=== PATIENT | male | born 1950 | race Two or more races ===

== ENCOUNTER 2024-11-13 12:17 | Emergency (ER) | payer OTHER ==
[~2024-11-13] VITALS: Ht 177.8 cm; Wt 82.9 kg
[2024-11-13 12:28] VITALS: TEMP 98.6
[2024-11-13 12:38] VITALS: BP 145/83; RESP 16; O2SAT 95
--- NOTE | 2024-11-13 12:48 | ECG ---
[facility] Test Date: 2024-11-13 Test Time: 12:21:29 Pat Name: GERRI NAVARRETE Department: ED Room: Gender: M Director Of Investigations: KIKA : 1950 Requested By: NEERU ALMEIDA Order Number: [id number] Reading MD: Ricco Leblanc Measurements Intervals [place] Rate: 67 P: 71 [place]: 184 QRS: 108 QRSD: 111 T: 56 QT: 415 QTc: 438 Interpretive Statements Sinus rhythm Probable right ventricular hypertrophy Minimal ST elevation, anterior leads Electronically Signed On 11-13-2024 20:59:24 PDT by Ricco Leblanc Please click the below link to view image of tracing.
[2024-11-13 13:04] LABS: Basophils # (auto) 0.1 10 ^3/uL (0-0.2); Basophils % (auto) 1.1 % (0.0-2.0); Eosinophils # (auto) 0.2 10 ^3/uL (0-0.8); Eosinophils % (auto) 1.8 % (0.0-7.0); Hematocrit 44.7 % (41.0-53.0); Hemoglobin 15.4 g/dL (13.5-17.5); Lymphocytes # (auto) 2.8 10 ^3/uL (0.4-5.4); Mean Corpuscular Hemoglobin 31.5 pg (28.0-32.0); Mean Corpuscular Hgb Conc. 34.4 g/dL (32.0-36.0); Mean Corpuscular Volume 91.6 fL (80.0-100.0); Monocytes # (auto) 0.7 10 ^3/uL (0-1.3); Neutrophils # (auto) 8.2 10 ^3/uL (1.6-8.6); Neutrophils % (auto) 68.1 % (37.0-80.0); Nucleated Red Blood Cells % 0.1 %; Platelet Count (auto) 294 10^3/uL (140-450); Red Blood Cells 4.88 10^6/uL (4.5-5.90); Red Cell Distribution Width 15.3 % (11.8-14.3)
[2024-11-13 13:14] LABS: Chloride 101 mmol/L (98-107)
[2024-11-13 13:15] LABS: Anion Gap 7 (5-15); Carbon Dioxide 26 mmol/L (20-31)
[2024-11-13 13:16] LABS: Calcium 9.7 mg/dL (8.7-10.4)
[2024-11-13 13:18] LABS: Sodium 134 mmol/L (136-145)
[2024-11-13 13:20] LABS: Glucose 87 mg/dL (74-106)
[2024-11-13 13:21] LABS: BUN/Creatinine Ratio 14.1 (10.0-20.0); Blood Urea Nitrogen 12 mg/dL (9-23)
[2024-11-13 14:12] VITALS: PULSE 67
--- NOTE | 2024-11-13 14:12 | ED.PDOC ---
History of Present Illness HPI Comments 74 y/o M, with a history of HTN and tobacco use, presents with c/o nonradiating chest pain, today. Patient reports on unprovoked and sudden onset of pain, this morning, with no prior history of in the past. He endorses on no recent stressors, sick contact, strenuous activities, or any additional relevant recent history at this time. Patient denies having any shortness of breath, palpitations, dizziness, nausea, vomiting, or other associated symptoms or modifiers at this time. Chief Complaint: Chest Pain Time Seen by MD: 12:30 Reviewed Notes: Nurses Notes, Medications, Allergies Allergies: Coded Allergies: NO KNOWN ALLERGIES (Unverified , 11/13/24) Information Source: Patient Mode of Arrival: Ambulatory Severity: Moderate Timing: Hours Duration: Since onset Prehospital treatment: None Past Medical History PAST MEDICAL HISTORY: HTN Surgical History: Denies all surgeries Family History Family History: Unknown Social History Smoker: Cigarettes Alcohol: Sober (8x years ) Drugs: Denies Drug Use Lives In: Home All Other Systems: Reviewed and Negative (Comprehensive systems review obtained and negative except for what is stated in the HPI.) Physical Exam General Appearance: Moderate Distress HEENT: Normal ENT Inspection, Pharynx Normal, TMs Normal Neck: Full Range of Motion, Non-Tender, Normal, Normal Inspection Respiratory: Chest Non-Tender, Lungs Clear, No Accessory Muscle Use, No Respiratory Distress, Normal Breath Sounds Cardiovascular: No Edema, No JVD, No Murmur, No Gallop, Normal Peripheral Pulses, Regular Rate/Rhythm Breast Exam: Deferred Gastrointestinal: No Organomegaly, Non Tender, No Pulsatile Mass, Normal Bowel Sounds, Soft Genitalia: Deferred Pelvic: Deferred Rectal: Deferred Extremities: No calf tenderness, Normal capillary refill, Normal inspection, Normal range of motion, Non-tender, No pedal edema Musculoskeletal : Apperance: Normal Neurologic: Alert, nail kegger II-XII nml as Tested, No Motor Deficits, Normal Affect, Normal Mood, No Sensory Deficits Cerebellar Function: Normal Reflexes: Normal Skin: Dry, Normal Color, Warm Peripheral Pulses: 3+ Radial (R), 3+ Radial (L) Lymphatic: No Adenopathy Was a procedure done? Was a procedure done?: No EKG EKG : Pulse Rate (adult): 67 [place]: Normal Cardiac Rhythm: NSR Block: None Hypertrophy: None ST: Normal Differential Dx Considerations may include: VA, PE, ACS, PNA, URI, viral syndrome, gastritis, costochondritis, pericarditis, among others X-Ray, Labs, Meds, VS Vital Signs Date Time Temp Pulse Resp B/P (MAP) Pulse Ox O2 Delivery O2 Flow Rate FiO2 11/13/24 14:12 67 11/13/24 12:38 68 16 145/83 (103) 95 11/13/24 12:28 98.6 70 18 132/102 (112) 95 98.6 11/13/24 12:21 67 Lab Test 11/13/24 13:27 11/13/24 12:35 Range/Units Troponin I High Sensitivity < 3 L 3 L </=54 ng/L White Blood Count 12.0 H 4.4-10.8 10^3/uL Red Blood Count 4.88 4.5-5.90 10^6/uL Hemoglobin 15.4 13.5-17.5 g/dL Hematocrit 44.7 41.0-53.0 % Mean Corpuscular Volume 91.6 80.0-100.0 fL Mean Corpuscular Hemoglobin 31.5 28.0-32.0 pg Mean Corpuscular Hemoglobin Concent 34.4 32.0-36.0 g/dL Red Cell Distribution Width 15.3 H 11.8-14.3 % Platelet Count 294 140-450 10^3/uL Mean Platelet Volume 8.1 6.9-10.8 fL Neutrophils (%) (Auto) 68.1 37.0-80.0 % Lymphocytes (%) (Auto) 23.0 10.0-50.0 % Monocytes (%) (Auto) 6.0 0.0-12.0 % Eosinophils (%) (Auto) 1.8 0.0-7.0 % Basophils (%) (Auto) 1.1 0.0-2.0 % Neutrophils # (Auto) 8.2 1.6-8.6 10 ^3/uL Lymphocytes # (Auto) 2.8 0.4-5.4 10 ^3/uL Monocytes # (Auto) 0.7 0-1.3 10 ^3/uL Eosinophils # (Auto) 0.2 0-0.8 10 ^3/uL Basophils # (Auto) 0.1 0-0.2 10 ^3/uL Nucleated Red Blood Cells 0.1 % Sodium Level 134 L 136-145 mmol/L Potassium Level 4.0 3.5-5.1 mmol/L Chloride Level 101 98-107 mmol/L Carbon Dioxide Level 26 20-31 mmol/L Anion Gap 7 5-15 Blood Urea Nitrogen 12 9-23 mg/dL Creatinine 0.85 0.700-1.30 mg/dL Glomerular Filtration Rate Calc 92 >90 mL/min BUN/Creatinine Ratio 14.1 10.0-20.0 Serum Glucose 87 74-106 mg/dL Calcium Level 9.7 8.7-10.4 mg/dL Patient alert. Complaining of chest pain. Vitals stable. Answering questions. WBC slightly elevated. Cardiac marker within normal limits. EKG reviewed does not show any acute changes. Continues to have chest pain. Has risk factors. Was given aspirin. Was given nitro. Reviewed his history. Explained to the patient. Continue cardiac monitoring. Cardiology consultation. Time of 1ST Reevaluation: 13:00 Reevaluation 1ST: Unchanged Patient Education/Counseling: Diagnosis, Treatment Family Education/Counseling: No Family Present Additional Information Previous medical encounters reviewed: n/a The following tests were ordered, and results were reviewed by me: EKG, BMP, CBC, troponin Additional Information was gathered from interviewing the following independent historians: n/a I reviewed and agreed with the following test results read by other providers: n/a I discussed treatment and results with medical personnel and: Patient Departure 1 Departure Time of Disposition: 15:16 Impression: Primary Impression: Chest pain of unknown etiology Disposition: ADMITTED INPATIENT Admit to: Med Surg Condition: Guarded Critical Care Note Critical Care Time?: No Stability Stability form required: No Heart Score Heart Score: Heart Score Response (Comments) Value History Slightly Suspicious 0 EKG Normal 0 Age >65 2 Risk Factors 1 or 2 risk factors 1 Troponin Normal limit 0 Total 3 I personally scribed for NEERU ALMEIDA MD ([email or web address]) on 11/13/24 at 14:12. Electronically submitted by Navjot Ca ([email or web address]). NEERU ALMEIDA MD Nov 13, 2024 14:12
== END 2024-11-13 21:03 | disposition left against medical advice (07) ==
LOC: ER 12:27
DX: R07.89 Other chest pain (principal); I10 Essential (primary) hypertension; F17.210 Nicotine dependence, cigarettes, uncomplicated
CPT/HCPCS: 36415; 80048; 84484; 85025; 93005

== ENCOUNTER 2025-03-20 13:05 | Inpatient (IN) | payer OTHER ==
[~2025-03-20] VITALS: Ht 170.2 cm; Wt 83.3 kg
--- NOTE | 2025-03-20 13:38 | ED.PDOC ---
HPI Comments HPI: This is a 74 year old male presenting to the ED with chief complaint of chest pain. Patient reports that he has been experiencing left sided arm cramping with associated left sided chest pain since yesterday. Patient relays that he went to regarding his concern today, however, he was advised to come to the ED due to the symptoms he was describing. Patient denies any SOB, dizziness, headache, cough, or N/V. Initial Vitals BP: 155/80 HR: 65 RR: 16 O2: 95% Temp: 97.2F Past Medical History: HTN Past Surgical History: Hernia Repair Social History: Denies ETOH and drug use. Cigarette smoker. Medications: Reviewed Allergies: NKDA HPI: Poor Historian. REVIEW OF SYSTEMS: CONSTITUTIONAL: Denies acute: fever, diaphoresis, chills, HEAD: Denies acute: headache, photophobia Eyes: Denies acute: Double vision, vision loss, eye pain, eye discharge. EARS: Denies acute: tinnitus, hearing loss, ear discharge, ear pain, THROAT: Denies acute: sore throat, swelling, difficulty swallowing , pain with swallowing, change in voice. NECK: Denies acute: neck pain, neck swelling, stiff neck. HEART: Denies acute : palpitations, LUNGS: Denies acute: SOB, wheezing, cough, hemoptysis ABDOMEN: Denies acute: abdominal pain, Nausea, Vomiting, diarrhea, melena , hematemesis, hematochezia SKIN: Denies acute: rash, redness, lesions, itchiness. EXTREMITIES: Denies acute: calf pain, numbness, tingling, weakness, Denies acute: Low back pain. Neuro: Denies acute: focal neurological deficit, motor or sensory focal neurological deficit, tremors, seizure like activity, confusion, dizziness, change in mental status, loss of bowel or bladder function, cauda equina like symptoms. : Denies acute: dysuria, hematuria, flank pain, increase in urinary frequency. PSYCH: Denies acute: hallucination, suicidal ideation, homicidal ideation. PHYSICAL EXAM: General: -----mild---acute distress, awake and alert. Head: normocephalic, atraumatic. Neck: supple, trachea is midline, no swelling. Throat: Normal phonation. Eyes:, no erythema, no purulent discharge, no proptosis, no icterus. Heart: regular rate, regular rhythm, no significant murmur appreciated. Lungs: no apparent respiratory distress, Able to speak in full sentences. No wheezing, no rhonchi, no crackles. No stridors Clear to auscultation bilaterally. Abdomen: non tender to palpation, non distended, soft, no guarding, no rebound, + bowel sounds. Neuro: Awake, Alert, oriented to name, self, situation, follows commands GCS=15. Speech is normal. Skin: no petechia, no purpura, no cyanosis, non-pale, not jaundice. Lower extremities: --no - Pitting edema no deformity, no focal swelling, no calf TTP. Makes eye contact. moves all four extremities. Face: no apparent facial droop. Ambulating in the ED independently. ED COURSE: DISCLAIMER: This medical document was created using an electronic medical record system with voice recognition software and computerized dictation system. Although this document has been carefully reviewed, there might still be some phonetic and typographical errors. Occasional wrong-word or "sound-alike" substitutions may have occurred due to the inherent limitations of voice recognition software. These areas are purely typographical due to imperfections of the software programs and do not reflect any compromise in the patient's medical care. Please read the chart carefully and recognize, using context, where these substitutions have occurred. Chief Complaint: Chest Pain Time Seen by MD: 13:35 Reviewed Notes: Medications, Allergies Allergies: Coded Allergies: NO KNOWN ALLERGIES (Unverified , 11/13/24) Information Source: Patient Mode of Arrival: Ambulatory Was a procedure done? Was a procedure done?: No X-Ray, Labs, Meds, VS Vital Signs Date Time Temp Pulse Resp B/P (MAP) Pulse Ox O2 Delivery O2 Flow Rate FiO2 03/20/25 14:34 134/73 03/20/25 14:29 98.2 59 16 138/88 (105) 91 98.2 03/20/25 14:04 71 03/20/25 13:15 68 03/20/25 13:08 97.2 65 16 155/80 95 97.2 Lab Test 03/20/25 14:35 03/20/25 13:34 Range/Units Troponin I High Sensitivity < 3 L < 3 L </=54 ng/L White Blood Count 11.7 H 4.4-10.8 10^3/uL Red Blood Count 4.97 4.5-5.90 10^6/uL Hemoglobin 15.8 13.5-17.5 g/dL Hematocrit 45.2 41.0-53.0 % Mean Corpuscular Volume 91.0 80.0-100.0 fL Mean Corpuscular Hemoglobin 31.9 28.0-32.0 pg Mean Corpuscular Hemoglobin Concent 35.0 32.0-36.0 g/dL Red Cell Distribution Width 14.8 H 11.8-14.3 % Platelet Count 308 140-450 10^3/uL Mean Platelet Volume 8.0 6.9-10.8 fL Neutrophils (%) (Auto) 68.3 37.0-80.0 % Lymphocytes (%) (Auto) 22.1 10.0-50.0 % Monocytes (%) (Auto) 6.4 0.0-12.0 % Eosinophils (%) (Auto) 2.1 0.0-7.0 % Basophils (%) (Auto) 1.1 0.0-2.0 % Neutrophils # (Auto) 8.0 1.6-8.6 10 ^3/uL Lymphocytes # (Auto) 2.6 0.4-5.4 10 ^3/uL Monocytes # (Auto) 0.8 0-1.3 10 ^3/uL Eosinophils # (Auto) 0.2 0-0.8 10 ^3/uL Basophils # (Auto) 0.1 0-0.2 10 ^3/uL Nucleated Red Blood Cells 0.2 % Sodium Level 135 L 136-145 mmol/L Potassium Level 4.1 3.5-5.1 mmol/L Chloride Level 102 98-107 mmol/L Carbon Dioxide Level 27 20-31 mmol/L Anion Gap 6 5-15 Blood Urea Nitrogen 14 9-23 mg/dL Creatinine 0.95 0.700-1.30 mg/dL Glomerular Filtration Rate Calc 85 >90 mL/min BUN/Creatinine Ratio 14.7 10.0-20.0 Serum Glucose 88 74-106 mg/dL Calcium Level 9.1 8.7-10.4 mg/dL Total Bilirubin 0.4 0.2-1.0 mg/dL Aspartate Amino Transferase (AST) 13 13-40 U/L Alanine Aminotransferase (ALT) 15 7-40 U/L Alkaline Phosphatase 74 46-116 U/L Total Protein 6.6 5.7-8.2 g/dL Albumin 4.6 3.2-4.8 g/dL Current Medications Medications (Trade) Dose Ordered Sig/Alia Route Start Time Stop Time Status Last Admin Aspirin (Ecotrin Enteric Coated Tablet) 325 mg ONCE ONCE PO 03/20/25 13:45 03/20/25 13:46 DC 03/20/25 14:34 Time of 1ST Reevaluation: 14:34 Reevaluation 1ST: Unchanged Patient Education/Counseling: Diagnosis, Treatment Family Education/Counseling: No Family Present Departure 1 Departure Time of Disposition: 13:56 Impression: Primary Impression: Chest pain Disposition: ADMITTED INPATIENT Admit to: Tele Condition: Guarded Discharged With: Self Critical Care Note Critical Care Time?: No Heart Score Heart Score: Heart Score Response (Comments) Value History Highly Suspicious 2 EKG Normal 0 Age >65 2 Risk Factors 1 or 2 risk factors 1 Total 5 I personally scribed for PENNY MORENO DO ([email or web address]) on 03/20/25 at 13:38. Elec tronically submitted by Ayad Pearce ([email or web address]). I personally scribed for PENNY MORENO DO ([email or web address]) on 03/20/25 at 17:28. Elect ronically submitted by Ayad Pearce ([email or web address]). PENNY MORENO DO Mar 20, 2025 13:38
[2025-03-20 14:01] LABS: Hematocrit 45.2 % (41.0-53.0); Hemoglobin 15.8 g/dL (13.5-17.5); Mean Corpuscular Hemoglobin 31.9 pg (28.0-32.0); Mean Corpuscular Volume 91.0 fL (80.0-100.0); Nucleated Red Blood Cells % 0.2 %
[2025-03-20 14:16] LABS: Alanine Aminotransferase 15 U/L (7-40); Albumin 4.6 g/dL (3.2-4.8); Alkaline Phosphatase 74 U/L (46-116); Anion Gap 6 (5-15); BUN/Creatinine Ratio 14.7 (10.0-20.0); Bilirubin, Total 0.4 mg/dL (0.2-1.0); Blood Urea Nitrogen 14 mg/dL (9-23); Calcium 9.1 mg/dL (8.7-10.4); Carbon Dioxide 27 mmol/L (20-31); Chloride 102 mmol/L (98-107); Glucose 88 mg/dL (74-106); Potassium 4.1 mmol/L (3.5-5.1); Total Protein 6.6 g/dL (5.7-8.2)
[2025-03-20 14:19] LABS: Sodium 135 mmol/L (136-145)
[2025-03-20] MEDS: ASPirin-EC 325mg tab PO ONE (14:34)
[2025-03-20] MEDS: NITROGLYCERIN 0.4 MG SL TAB SL ONE (14:34)
--- NOTE | 2025-03-20 14:36 | DVH ---
CHEST RADIOGRAPH Indication: cp Technique: Single frontal view of the chest was obtained COMPARISON: None FINDINGS: Lines and Tubes: None Lungs: Right basilar subsegmental atelectasis. Pleura: No effusion. No pneumothorax. Cardiomediastinal contours: Unremarkable Bones: Unremarkable IMPRESSION: Right basilar subsegmental atelectasis.
--- NOTE | 2025-03-20 16:53 | DVHHP2 ---
History of Present Illness Reason for Visit: Intermittent chest pain in left precordial for last few days., worseni History of Present Illness 74-year-old male with a known history of hypertension, chronic tobacco use disorder, presented to the hospital with a intermittent chest pain on and off for last two days worsening this morning. Eventually patient is also complaining of pain radiation to the left upper extremity. Currently denies any chest pain. Denies any previous episode of similar kind. Denies any room known coronary artery disease. Cardiovascular: HTN Past Surgical History: Hernia Repair Family History: None Smoke: <1 pack per day Review of Systems Review of Systems Twelve review of system are negative besides mentioned above. 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 Labs/Xrays Labs Test 03/20/25 14:35 03/20/25 13:34 Range/Units Troponin I High Sensitivity < 3 L </=54 ng/L White Blood Count 11.7 H 4.4-10.8 10^3/uL Red Blood Count 4.97 4.5-5.90 10^6/uL Hemoglobin 15.8 13.5-17.5 g/dL Hematocrit 45.2 41.0-53.0 % Mean Corpuscular Volume 91.0 80.0-100.0 fL Mean Corpuscular Hemoglobin 31.9 28.0-32.0 pg Mean Corpuscular Hemoglobin Concent 35.0 32.0-36.0 g/dL Red Cell Distribution Width 14.8 H 11.8-14.3 % Platelet Count 308 140-450 10^3/uL Mean Platelet Volume 8.0 6.9-10.8 fL Neutrophils (%) (Auto) 68.3 37.0-80.0 % Lymphocytes (%) (Auto) 22.1 10.0-50.0 % Monocytes (%) (Auto) 6.4 0.0-12.0 % Eosinophils (%) (Auto) 2.1 0.0-7.0 % Basophils (%) (Auto) 1.1 0.0-2.0 % Neutrophils # (Auto) 8.0 1.6-8.6 10 ^3/uL Lymphocytes # (Auto) 2.6 0.4-5.4 10 ^3/uL Monocytes # (Auto) 0.8 0-1.3 10 ^3/uL Eosinophils # (Auto) 0.2 0-0.8 10 ^3/uL Basophils # (Auto) 0.1 0-0.2 10 ^3/uL Nucleated Red Blood Cells 0.2 % Sodium Level 135 L 136-145 mmol/L Potassium Level 4.1 3.5-5.1 mmol/L Chloride Level 102 98-107 mmol/L Carbon Dioxide Level 27 20-31 mmol/L Anion Gap 6 5-15 Blood Urea Nitrogen 14 9-23 mg/dL Creatinine 0.95 0.700-1.30 mg/dL Glomerular Filtration Rate Calc 85 >90 mL/min BUN/Creatinine Ratio 14.7 10.0-20.0 Serum Glucose 88 74-106 mg/dL Calcium Level 9.1 8.7-10.4 mg/dL Total Bilirubin 0.4 0.2-1.0 mg/dL Aspartate Amino Transferase (AST) 13 13-40 U/L Alanine Aminotransferase (ALT) 15 7-40 U/L Alkaline Phosphatase 74 46-116 U/L Total Protein 6.6 5.7-8.2 g/dL Albumin 4.6 3.2-4.8 g/dL SEPSIS Sepsis Screen Date sepsis recognized/suspect: Mar 20, 2025 Time Sepsis recognized/suspect: 1308 Recent Procedure: No On Antibiotic Therapy: No Respiratory Rate >20: No Heart Rate >90: No Temp<36 C (96.8 F) or >38.3 C: No SBP <90 or MAP <65 mmHG: No New Acute Mental Status Change: No Is the patient on CPAP, BIPAP,: No Physician Orders Electrocardigram (03/20/25 13:07) Troponin-I Hs (03/20/25 16:07) Electrocardigram (03/20/25 14:07) Cook Fruit (03/20/25 ) Chest Portable (03/20/25 13:36) Admit (03/20/25 16:47) Code Status (03/20/25 16:47) 2 Gm Sodium Diet (03/20/25 Dinner) 0.9% Ns 1000 Ml (03/20/25 17:00) Hydrocodone-Acet 5/325mg Tab (Cohoes 32 (03/20/25 17:00) Ondansetron Hcl (Zofran) (03/20/25 17:00) Enoxaparin Sodium (Lovenox) (03/21/25 10:00) Echo 2d Mode Cardiac Dop (03/20/25 16:47) Condition: Fair (03/20/25 16:47) Acetaminophen Tablet (Tylenol Tablet) (03/20/25 17:00) Morphine Sulfate Injection (03/20/25 17:00) Nitroglycerin Sublingual (Ntrostat Subli (03/20/25 17:00) Morphine Sulfate Injection (03/20/25 17:00) Stat Ekg For Chest Pain (03/20/25 16:47) Notify Md Of Changes From Base (03/20/25 16:47) Eyewear Consultant For 24 Hours (03/20/25 16:47) Emergency Dysrhythmia Protocol (03/20/25 16:47) Rhythm Strips Once Every Shift (03/20/25 16:47) Oxygen By Nasal Cannula (03/20/25 16:47) Aspirin Tablet (03/21/25 10:00) Atorvastatin (Lipitor) (03/20/25 22:00) Vital Signs Date Time Temp Pulse Resp B/P (MAP) Pulse Ox O2 Delivery O2 Flow Rate FiO2 03/20/25 14:34 134/73 03/20/25 14:29 98.2 59 16 138/88 (105) 91 98.2 03/20/25 14:04 71 03/20/25 13:15 68 03/20/25 13:08 97.2 65 16 155/80 95 97.2 Laboratory Tests Test 03/20/25 13:34 White Blood Count 11.7 10^3/uL (4.4-10.8) H Medications Medications Dose Ordered Sig/Alia Route Start Time Stop Time Status Last Admin Dose Admin Aspirin 325 mg ONCE ONCE PO 03/20/25 13:45 03/20/25 13:46 DC 03/20/25 14:34 325 MG Assessment/Plan Assessment/Plan 74-year-old male with a known history of hypertension, chronic tobacco use disorder presented to the hospital with the chest pain radiation to left arm fo und to have 1. Chest pain rule out [place] 2. Hypertension 3. Chronic tobacco use disorder Plan is admitted to telemetry 2D echo cardiology consult aspirin statin. Keep NPO after midnight in case patient needs any cardiac workup. Plan discussed with: Patient My Orders Orders - TEGAN MONROE MD Procedure Category Date Status Time Admit ADMIT 03/20/25 Verified 16:47 Code Status CODE 03/20/25 Verified 16:47 2 Gm Sodium Diet DIET 03/20/25 Verified Dinner 0.9% Ns 1000 Ml PHA 03/20/25 Verified 17:00 Hydrocodone-Acet PHA 03/20/25 Verified 5/325mg Tab (Cohoes 17:00 Ondansetron Hcl PHA 03/20/25 Verified (Zofran) 17:00 Enoxaparin Sodium PHA 03/21/25 Verified (Lovenox) 10:00 Echo 2d Mode Cardiac US 03/20/25 Verified DOP 16:47 Condition: Fair RONNIE 03/20/25 Verified 16:47 Acetaminophen Tablet PHA 03/20/25 Verified (Tylenol Tablet) 17:00 Morphine Sulfate PHA 03/20/25 Verified Injection 17:00 Nitroglycerin PHA 03/20/25 Verified Sublingual (Ntrostat 17:00 Morphine Sulfate PHA 03/20/25 Verified Injection 17:00 Stat Ekg For Chest RONNIE 03/20/25 Verified Pain 16:47 Notify Of Changes RONNIE 03/20/25 Verified From Base 16:47 Eyewear Consultant For RONNIE 03/20/25 Verified 24 Hours 16:47 Emergency Dysrhythmia RONNIE 03/20/25 Verified Protocol 16:47 Rhythm Strips Once RONNIE 03/20/25 Verified Every Shift 16:47 Oxygen By Nasal RT 03/20/25 Verified Cannula 16:47 Aspirin Tablet PHA 03/21/25 Verified 10:00 Atorvastatin (Lipitor) PHA 03/20/25 Verified 22:00 Date of Service: Mar 20, 2025 Billing Provider: TEGAN MONROE MD Common Visit Codes: NOT BILLABLE TEGAN MONROE MD Mar 20, 2025 16:53
[2025-03-20] MEDS ORDERED: HYDROcodone-ACET 5/325MG TAB PO PRN (17:00)
[2025-03-20] MEDS ORDERED: NITROGLYCERIN 0.4 MG SL TAB SL PRN (17:00)
[2025-03-20] MEDS ORDERED: MORPHINE SULFATE INJ 2 MG/ml SYRG IV PRN ×2 (17:00)
[2025-03-20] MEDS ORDERED: ONDANSETRON HCL 4 MG/2 ML VIAL IV PRN (17:00)
[2025-03-20 18:15] VITALS: BP 155/94; PULSE 70; RESP 18; TEMP 98.2; O2SAT 96
[2025-03-20] MEDS: SODIUM CHLORIDE 0.9% 1,000 ML IV SCH (18:15)
[2025-03-20 18:38] VITALS: BP 155/94; PULSE 70; RESP 18; TEMP 98.4; O2SAT 96; O2SAT 98
[2025-03-20] MEDS ORDERED: METO-6 PO (19:49)
[2025-03-20] MEDS ORDERED: AML5T PO (19:51)
[2025-03-20 20:00] VITALS: PULSE 67
[2025-03-20] MEDS: ACETAMINOPHEN 325 MG TAB PO PRN (20:15)
[2025-03-20 21:00] VITALS: BP 147/92; PULSE 65; RESP 18; TEMP 97.9; O2SAT 95
[2025-03-20] MEDS: ATORVASTATIN 20 MG TAB PO SCH (21:57)
[2025-03-21 01:00] VITALS: BP 150/85; PULSE 63; RESP 18; TEMP 97.6; O2SAT 93
--- NOTE | 2025-03-21 04:04 | ECG ---
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
[2025-03-21 05:00] VITALS: BP 147/96; PULSE 63; RESP 18; TEMP 97.4; O2SAT 95
[2025-03-21 08:00] VITALS: PULSE 61
[2025-03-21 08:52] VITALS: BP 147/90; PULSE 63; RESP 17; TEMP 97.6; O2SAT 95
[2025-03-21] MEDS: ENOXAPARIN SOD 40 MG/0.4 ML SYRINGE SC SCH (09:11)
[2025-03-21 12:46] VITALS: BP 153/94; PULSE 62; RESP 18; TEMP 97.5; O2SAT 95
[2025-03-21] MEDS: METOPROLOL SUCCINATE XL 50 MG TAB PO ONE (15:00)
[2025-03-21] MEDS ORDERED: METOPROLOL TARTRATE 50 MG TAB PO ONE (15:00)
--- NOTE | 2025-03-21 15:27 | DVHINCON2 ---
Date Seen: Mar 21, [address] Youssef Reason for Consultation Chest pain History of Present Illness 74-year-old Martiniquais-speaking male with a history of hypertension and tobacco use presents to the ED with complaint of chest pain. The patient reports that symptoms began two days ago with left arm cramping that radiated to the chest, described as sharp pain. In the ED, 12 lead ECG demonstrated normal sinus rhythm with no acute ischemic changes, and serial troponins were negative. Risk stratification: HEART score 5, DARIA score 4. On current assessment, the patient denies chest pain, shortness of breath, or dyspnea. He expresses a desire to go home, but was advised that given his elevated risk score, he would benefit from Cardiolite stress testing for further evaluation. An echo cardiogram is pending. Past Medical History As stated in HPI Past Surgical History Hernia repair Family History Reviewed, non-contributory to the management of this case. Social History Tobacco use 8-10 sticks per Allergies: Coded Allergies: NO KNOWN ALLERGIES (Unverified , 11/13/24) Home Meds Reported Medications Amlodipine Besylate (NORVASC TABLET) 5 Mg Tb, 1 TAB PO DAILY, #30 TAB 5 Refills 03/20/25 Metoprolol Succinate (Toprol Xl) 50 Mg Tab, 100 MG PO DAILY, TAB 03/20/25 Current Medications Current Medications Medications (Trade) Dose Ordered Sig/Alia Route PRN Reason Start Time Stop Time Status Last Admin Sodium Chloride 1,000 ml @ 120 mls/hr Q8H20M IV 03/20/25 17:00 03/21/25 09:11 Acetaminophen/ Hydrocodone Bitart ([place] 5/325MG Tab) 1 tab Q4HP PRN PO MODERATE PAIN (4-6 PAIN SCALE) 03/20/25 17:00 Ondansetron HCl (Zofran) 4 mg Q4HP PRN IV NAUSEA / VOMITING 03/20/25 17:00 Enoxaparin Sodium (Lovenox) 40 mg DAILY SC 03/21/25 10:00 03/21/25 09:11 Acetaminophen (Tylenol Tablet) 650 mg Q6HP PRN PO PAIN SCALE 1-3 OR TEMP>100.4 03/20/25 17:00 03/20/25 20:15 Morphine Sulfate 2 mg Q4HPRN PRN IV SEVERE PAIN (7-10 PAIN SCALE) 03/20/25 17:00 Nitroglycerin (Ntrostat Sublingual) 0.4 mg Q5MINP PRN SL FOR CHEST PAIN 03/20/25 17:00 Morphine Sulfate 2 mg Q30M PRN IV FOR CHEST PAIN 03/20/25 17:00 Aspirin 81 mg DAILY PO 03/21/25 10:00 03/21/25 09:11 Atorvastatin Calcium (Lipitor) 40 mg HS PO 03/20/25 22:00 03/20/25 21:57 Metoprolol Tartrate (Lopressor Tablet) 100 mg DAILY PO 03/22/25 10:00 03/21/25 14:56 DC Amlodipine Besylate (Norvasc Tablet) 5 mg DAILY PO 03/22/25 10:00 Metoprolol Succinate (Toprol Xl) 100 mg DAILY PO 03/22/25 10:00 Review of Systems Constitutional: No symptom reported Ears, Nose, & Throat: No symptom reported Eyes: No symptom reported Neurological: No symptoms reported Pulmonary/Respiratory: No symptom reported Cardiovascular: Reports prior chest pain and left arm pain, denies palpitation, syncope Gastrointestinal: No symptom reported Genitourinary: No symptom reported Musculoskeletal: No symptom reported Skin: No symptom reported Psychiatric: No symptom reported Endocrine: No symptom reported Hematologic/Lymphatic: No symptom reported Vital Signs Vital Signs Date Time Temp Pulse Resp B/P (MAP) Pulse Ox O2 Delivery O2 Flow Rate FiO2 03/21/25 12:46 97.5 62 18 153/94 (113) 95 97.5 03/21/25 08:00 Room Air* 0 21 Physical Exam INITIAL VITAL SIGNS: Reviewed by me GENERAL: Alert and interactive. No acute distress. HEAD: Head is normocephalic and atraumatic. EYES: EOMI, PERRL. No scleral icterus. No conjunctival injection. ENT: Moist mucous membranes. NECK: Supple, No masses, Full range of motion. RESPIRATORY: No tachypnea. Clear breath sounds bilaterally. No wheezing, rales, rhonchi. CV: Regular rate and rhythm. No murmurs, rubs, or gallops. GI/: Active bowel sounds, soft, nondistended, nontender. No guarding. No rebound. No masses. No CVA tenderness. INTEGUMENTARY: Warm and dry. No obvious rashes. NEUROLOGIC: Alert and oriented. Face is symmetric. Speech is normal. Moves al l extremities equally. Labs/Diagnostic Data Labs Test 03/20/25 14:35 03/20/25 13:34 Range/Units Troponin I High Sensitivity < 3 L </=54 ng/L White Blood Count 11.7 H 4.4-10.8 10^3/uL Red Blood Count 4.97 4.5-5.90 10^6/uL Hemoglobin 15.8 13.5-17.5 g/dL Hematocrit 45.2 41.0-53.0 % Mean Corpuscular Volume 91.0 80.0-100.0 fL Mean Corpuscular Hemoglobin 31.9 28.0-32.0 pg Mean Corpuscular Hemoglobin Concent 35.0 32.0-36.0 g/dL Red Cell Distribution Width 14.8 H 11.8-14.3 % Platelet Count 308 140-450 10^3/uL Mean Platelet Volume 8.0 6.9-10.8 fL Neutrophils (%) (Auto) 68.3 37.0-80.0 % Lymphocytes (%) (Auto) 22.1 10.0-50.0 % Monocytes (%) (Auto) 6.4 0.0-12.0 % Eosinophils (%) (Auto) 2.1 0.0-7.0 % Basophils (%) (Auto) 1.1 0.0-2.0 % Neutrophils # (Auto) 8.0 1.6-8.6 10 ^3/uL Lymphocytes # (Auto) 2.6 0.4-5.4 10 ^3/uL Monocytes # (Auto) 0.8 0-1.3 10 ^3/uL Eosinophils # (Auto) 0.2 0-0.8 10 ^3/uL Basophils # (Auto) 0.1 0-0.2 10 ^3/uL Nucleated Red Blood Cells 0.2 % Sodium Level 135 L 136-145 mmol/L Potassium Level 4.1 3.5-5.1 mmol/L Chloride Level 102 98-107 mmol/L Carbon Dioxide Level 27 20-31 mmol/L Anion Gap 6 5-15 Blood Urea Nitrogen 14 9-23 mg/dL Creatinine 0.95 0.700-1.30 mg/dL Glomerular Filtration Rate Calc 85 >90 mL/min BUN/Creatinine Ratio 14.7 10.0-20.0 Serum Glucose 88 74-106 mg/dL Calcium Level 9.1 8.7-10.4 mg/dL Total Bilirubin 0.4 0.2-1.0 mg/dL Aspartate Amino Transferase (AST) 13 13-40 U/L Alanine Aminotransferase (ALT) 15 7-40 U/L Alkaline Phosphatase 74 46-116 U/L Total Protein 6.6 5.7-8.2 g/dL Albumin 4.6 3.2-4.8 g/dL PROCEDURE(s): CXRP - CHEST PORTABLE REASON: cp ORDER NUMBER(s): [id number], ACCESSION NUMBER(s): [id number] CHEST RADIOGRAPH Indication: cp Technique: Single frontal view of the chest was obtained COMPARISON: None FINDINGS: Lines and Tubes: None Lungs: Right basilar subsegmental atelectasis. Pleura: No effusion. No pneumothorax. Cardiomediastinal contours: Unremarkable Bones: Unremarkable IMPRESSION: Right basilar subsegmental atelectasis. Assessment Acute chest pain to rule out CAD/ACS Hypertension Tobacco use Plan/Recommendation ( ): Given risk factors and intermediate scores, ACS can not be fully ruled out anatoly pite negative troponins and nonischemic ECG. * Cardiolite stress test recommended to assess for inducible ischemia * Await echocardiogram results for LV function and structural evaluation * Continue telemetry monitoring while inpatient * Counseled patient on risk of premature discharge given intermediate ACS risk * Chest pain protocol--continue aspirin * Check lipid panel and TSH * Optimize blood pressure management * Strongly encouraged smoking cessation This medical document was created using an electronic medical record system with voice recognition software and computerized dictation system. Although this document has been carefully reviewed, there might still be some phonetic and typographical errors. Occasional wrong-word or ``sound-alike substitutions may have occurred due to the inherent limitations of voice recognition software. These areas are purely typographical due to imperfections of the software programs and do not reflect any compromise in the patient's medical care. Please read the chart carefully and recognize, using context, where these substitutions have occurred. Plan discussed with: Patient Plan discussed with: Patient NYHA Physical activity limitations: NA Date of Service: Mar 21, 2025 Billing Provider: EDGARDO MOREL MD Cardiology Common Codes: CONSULT ONLY Cardiology Consultation Codes: [id number] CONSULT <45MIN [facility] Mar 21, 2025 15:27
--- NOTE | 2025-03-21 16:20 | DVHPN2 ---
Subjective Overnight events noted. Patient was NPO cardiology recommending stress test. 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 Medications Current Medications Medications Dose Ordered Sig/Alia Route Start Time Stop Time Status Last Admin Dose Admin Sodium Chloride 1,000 ml @ 120 mls/hr Q8H20M IV 03/20/25 17:00 03/21/25 15:44 120 MLS/HR Acetaminophen/ Hydrocodone Bitart 1 tab Q4HP PRN PO 03/20/25 17:00 Ondansetron HCl 4 mg Q4HP PRN IV 03/20/25 17:00 Enoxaparin Sodium 40 mg DAILY SC 03/21/25 10:00 03/21/25 09:11 40 MG Acetaminophen 650 mg Q6HP PRN PO 03/20/25 17:00 03/20/25 20:15 650 MG Morphine Sulfate 2 mg Q4HPRN PRN IV 03/20/25 17:00 Nitroglycerin 0.4 mg Q5MINP PRN SL 03/20/25 17:00 Morphine Sulfate 2 mg Q30M PRN IV 03/20/25 17:00 Aspirin 81 mg DAILY PO 03/21/25 10:00 03/21/25 09:11 81 MG Atorvastatin Calcium 40 mg HS PO 03/20/25 22:00 03/20/25 21:57 40 MG Amlodipine Besylate 5 mg DAILY PO 03/22/25 10:00 Metoprolol Succinate 100 mg DAILY PO 03/22/25 10:00 Laboratory Results Laboratory Tests 03/20/25 13:34 Assessment/Plan Assessment/Plan 74-year-old male with a known history of hypertension, chronic tobacco use disorder presented to the hospital with the chest pain radiation to left arm found to have 1. Chest pain rule out MS 2. Hypertension 3. Chronic tobacco use disorder -2D echo, cardiology recommending stress test. Plan discussed with: Patient, Spouse My Orders Orders - TEGAN MONROE MD Procedure Category Date Status Time Admit ADMIT 03/20/25 Transmitted 16:47 Code Status CODE 03/20/25 Transmitted 16:47 Sodium Chloride 0.9% PHA 03/20/25 In Process 17:00 Hydrocodone-Acet PHA 03/20/25 In Process 5/325mg Tab ([place] 17:00 Ondansetron Hcl PHA 03/20/25 In Process (Zofran) 17:00 Enoxaparin Sodium PHA 03/21/25 In Process (Lovenox) 10:00 Condition: Fair RONNIE 03/20/25 In Process 16:47 Acetaminophen Tablet PHA 03/20/25 In Process (Tylenol Tablet) 17:00 Morphine Sulfate PHA 03/20/25 In Process Injection 17:00 Nitroglycerin PHA 03/20/25 In Process Sublingual (Ntrostat 17:00 Morphine Sulfate PHA 03/20/25 In Process Injection 17:00 Stat Ekg For Chest RONNIE 03/20/25 In Process Pain 16:47 Notify Of Changes RONNIE 03/20/25 In Process From Base 16:47 Private [employer] Exchange [employer]r For RONNIE 03/20/25 In Process 24 Hours 16:47 Emergency Dysrhythmia RONNIE 03/20/25 In Process Protocol 16:47 Rhythm Strips Once RONNIE 03/20/25 In Process Every Shift 16:47 Oxygen By Nasal RT 03/20/25 Transmitted Cannula 16:47 Aspirin Tablet PHA 03/21/25 In Process 10:00 Atorvastatin (Lipitor) PHA 03/20/25 In Process 22:00 Cardiac DIET 03/21/25 Transmitted Diet-2gna,Lofat,Lochol Dinner * Cardiology Consult CONS 03/21/25 Transmitted 14:46 Amlodipine Tablet PHA 03/22/25 In Process (Norvasc Tablet) 10:00 Metoprolol Xl PHA 03/22/25 In Process Succinate (Toprol Xl) 10:00 Date of Service: Mar 21, 2025 Billing Provider: TEGAN MONROE MD Common Visit Codes: NOT BILLABLE TEGAN MONROE MD Mar 21, 2025 16:20
--- NOTE | 2025-03-21 17:32 | DVHDS2 ---
Discharge Summary Date of Admission Mar 20, 2025 at 16:47 Date of Discharge: Mar 21, 2025 Labs/Diagnostic Data: Laboratory Results Test 03/20/25 14:35 03/20/25 13:34 Troponin I High Sensitivity < 3 ng/L (</=54) White Blood Count 11.7 10^3/uL (4.4-10.8) Red Blood Count 4.97 10^6/uL (4.5-5.90) Hemoglobin 15.8 g/dL (13.5-17.5) Hematocrit 45.2 % (41.0-53.0) Mean Corpuscular Volume 91.0 fL (80.0-100.0) Mean Corpuscular Hemoglobin 31.9 pg (28.0-32.0) Mean Corpuscular Hemoglobin Concent 35.0 g/dL (32.0-36.0) Red Cell Distribution Width 14.8 % (11.8-14.3) Platelet Count 308 10^3/uL (140-450) Mean Platelet Volume 8.0 fL (6.9-10.8) Neutrophils (%) (Auto) 68.3 % (37.0-80.0) Lymphocytes (%) (Auto) 22.1 % (10.0-50.0) Monocytes (%) (Auto) 6.4 % (0.0-12.0) Eosinophils (%) (Auto) 2.1 % (0.0-7.0) Basophils (%) (Auto) 1.1 % (0.0-2.0) Neutrophils # (Auto) 8.0 10 ^3/uL (1.6-8.6) Lymphocytes # (Auto) 2.6 10 ^3/uL (0.4-5.4) Monocytes # (Auto) 0.8 10 ^3/uL (0-1.3) Eosinophils # (Auto) 0.2 10 ^3/uL (0-0.8) Basophils # (Auto) 0.1 10 ^3/uL (0-0.2) Nucleated Red Blood Cells 0.2 % Sodium Level 135 mmol/L (136-145) Potassium Level 4.1 mmol/L (3.5-5.1) Chloride Level 102 mmol/L (98-107) Carbon Dioxide Level 27 mmol/L (20-31) Anion Gap 6 (5-15) Blood Urea Nitrogen 14 mg/dL (9-23) Creatinine 0.95 mg/dL (0.700-1.30) Glomerular Filtration Rate Calc 85 mL/min (>90) BUN/Creatinine Ratio 14.7 (10.0-20.0) Serum Glucose 88 mg/dL (74-106) Calcium Level 9.1 mg/dL (8.7-10.4) Total Bilirubin 0.4 mg/dL (0.2-1.0) Aspartate Amino Transferase (AST) 13 U/L (13-40) Alanine Aminotransferase (ALT) 15 U/L (7-40) Alkaline Phosphatase 74 U/L (46-116) Total Protein 6.6 g/dL (5.7-8.2) Albumin 4.6 g/dL (3.2-4.8) Other Laboratory Tests 03/20/25 13:34 Brief Hx & Hospital Course: 74-year-old male with a known history of hypertension, chronic tobacco use disorder presented to the hospital with the chest pain radiation to left arm found to have normal troponin with a no acute STT wave changes on EKG. As patient's heart score is five cardiology was consulted patient was recommended to have stress test. Patient was also given counseling regarding tobacco cessation. Patient left against medical advice before completion of workup and treatment. Condition at Discharge: Undetermined Final Diagnosis/Problems List 74-year-old male with a known history of hypertension, chronic tobacco use disorder presented to the hospital with the chest pain radiation to left arm found to have 1. Chest pain rule out CT 2. Hypertension 3. Chronic tobacco use disorder Discharge Disposition: AMA SNF Discharge Will this Physician continue t: No Discharge Instruct/Medications Scheduled Amlodipine Besylate (Norvasc Tablet), 1 TAB PO DAILY, (Reported) Metoprolol Succinate (Toprol Xl), 100 MG PO DAILY, (Reported) Discharge Statement: "Patient was advised to return to the ER or call 911 if any headaches, dizziness, shortness of breath, chest pain, abdominal pain, bleeding, fevers, or worsening of medical condition. Patient was counseled about treatment plan, medications, possible side effects, patientverbalized understanding. All questions were answered to the best of my ability. This discharge took greater then 30 minutes in planning, reviewing documentation, counseling the patient, and discussing with other team members." ASSESSMENT ASSESSMENT Assessment Date of Service: Mar 21, 2025 Billing Provider: TEGAN MONROE MD Common Visit Codes: NOT BILLABLE TEGAN MONROE MD Mar 21, 2025 17:32
--- NOTE | 2025-03-21 23:02 | DVHINCON2 ---
Date Seen: Mar 21, [address] Youssef Reason for Consultation Chest pain History of Present Illness This is a 74-year-old Greek-speaking male with a history of hypertension and tobacco use presented to the ED with complaint of chest pain. Patient reports that symptoms began two days ago with left arm cramping that radiated to the chest, described as sharp pain. In the ED, 12 lead ECG demonstrated normal sinus rhythm with no acute ischemic changes, and serial troponins were negative. Risk stratification: HEART score 5, DARIA score 4. On current assessment, the patient denies chest pain, shortness of breath, or dyspnea. Patient expresses a desire to go home, but was advised that given his elevated risk score, he would benefit from Cardiolite stress testing for further evaluation. An echocardiogram is pending. Chest x-ray shows right basilar subsegmental atelectasis. Patient was admitted to the hospital. I am asked to consult on this patient. Past Medical History As stated in HPI Past Surgical History Hernia repair Allergies: Coded Allergies: NO KNOWN ALLERGIES (Unverified , 11/13/24) Home Meds Reported Medications Amlodipine Besylate (NORVASC TABLET) 5 Mg Tb, 1 TAB PO DAILY, #30 TAB 5 Refills 03/20/25 Metoprolol Succinate (Toprol Xl) 50 Mg Tab, 100 MG PO DAILY, TAB 03/20/25 Current Medications Current Medications Medications (Trade) Dose Ordered Sig/Alia Route PRN Reason Start Time Stop Time Status Last Admin Sodium Chloride 1,000 ml @ 120 mls/hr Q8H20M IV 03/20/25 17:00 03/21/25 15:44 Acetaminophen/ Hydrocodone Bitart ([place] 5/325MG Tab) 1 tab Q4HP PRN PO MODERATE PAIN (4-6 PAIN SCALE) 03/20/25 17:00 Ondansetron HCl (Zofran) 4 mg Q4HP PRN IV NAUSEA / VOMITING 03/20/25 17:00 Enoxaparin Sodium (Lovenox) 40 mg DAILY SC 03/21/25 10:00 03/21/25 09:11 Acetaminophen (Tylenol Tablet) 650 mg Q6HP PRN PO PAIN SCALE 1-3 OR TEMP>100.4 03/20/25 17:00 03/20/25 20:15 Morphine Sulfate 2 mg Q4HPRN PRN IV SEVERE PAIN (7-10 PAIN SCALE) 03/20/25 17:00 Nitroglycerin (Ntrostat Sublingual) 0.4 mg Q5MINP PRN SL FOR CHEST PAIN 03/20/25 17:00 Morphine Sulfate 2 mg Q30M PRN IV FOR CHEST PAIN 03/20/25 17:00 Aspirin 81 mg DAILY PO 03/21/25 10:00 03/21/25 09:11 Atorvastatin Calcium (Lipitor) 40 mg HS PO 03/20/25 22:00 03/20/25 21:57 Metoprolol Tartrate (Lopressor Tablet) 100 mg DAILY PO 03/22/25 10:00 03/21/25 14:56 DC Amlodipine Besylate (Norvasc Tablet) 5 mg DAILY PO 03/22/25 10:00 Metoprolol Succinate (Toprol Xl) 100 mg DAILY PO 03/22/25 10:00 Review of Systems Constitutional: No symptom reported Ears, Nose, & Throat: No symptom reported Eyes: No symptom reported Neurological: No symptoms reported Pulmonary/Respiratory: No symptom reported Cardiovascular: Reports prior chest pain and left arm pain, denies palpitation, syncope Gastrointestinal: No symptom reported Genitourinary: No symptom reported Musculoskeletal: No symptom reported Skin: No symptom reported Psychiatric: No symptom reported Endocrine: No symptom reported Hematologic/Lymphatic: No symptom reported Vital Signs Vital Signs Date Time Temp Pulse Resp B/P (MAP) Pulse Ox O2 Delivery O2 Flow Rate FiO2 03/21/25 15:00 62 153/94 03/21/25 12:46 97.5 18 95 97.5 03/21/25 08:00 Room Air* 0 21 Physical Exam GENERAL: Alert and oriented x 3. No acute distress. EYES: PERRL, EOMI. Anicteric. HENT: Moist mucous membranes. LUNGS: Clear to auscultation bilaterally. CARDIOVASCULAR: Regular rate and rhythm. ABDOMEN: Soft, nontender and nondistended. EXTREMITIES: No edema. NEUROLOGIC: No focal neurological deficits. SKIN: Warm, dry. Labs/Diagnostic Data Labs Test 03/20/25 14:35 03/20/25 13:34 Range/Units Troponin I High Sensitivity < 3 L </=54 ng/L White Blood Count 11.7 H 4.4-10.8 10^3/uL Red Blood Count 4.97 4.5-5.90 10^6/uL Hemoglobin 15.8 13.5-17.5 g/dL Hematocrit 45.2 41.0-53.0 % Mean Corpuscular Volume 91.0 80.0-100.0 fL Mean Corpuscular Hemoglobin 31.9 28.0-32.0 pg Mean Corpuscular Hemoglobin Concent 35.0 32.0-36.0 g/dL Red Cell Distribution Width 14.8 H 11.8-14.3 % Platelet Count 308 140-450 10^3/uL Mean Platelet Volume 8.0 6.9-10.8 fL Neutrophils (%) (Auto) 68.3 37.0-80.0 % Lymphocytes (%) (Auto) 22.1 10.0-50.0 % Monocytes (%) (Auto) 6.4 0.0-12.0 % Eosinophils (%) (Auto) 2.1 0.0-7.0 % Basophils (%) (Auto) 1.1 0.0-2.0 % Neutrophils # (Auto) 8.0 1.6-8.6 10 ^3/uL Lymphocytes # (Auto) 2.6 0.4-5.4 10 ^3/uL Monocytes # (Auto) 0.8 0-1.3 10 ^3/uL Eosinophils # (Auto) 0.2 0-0.8 10 ^3/uL Basophils # (Auto) 0.1 0-0.2 10 ^3/uL Nucleated Red Blood Cells 0.2 % Sodium Level 135 L 136-145 mmol/L Potassium Level 4.1 3.5-5.1 mmol/L Chloride Level 102 98-107 mmol/L Carbon Dioxide Level 27 20-31 mmol/L Anion Gap 6 5-15 Blood Urea Nitrogen 14 9-23 mg/dL Creatinine 0.95 0.700-1.30 mg/dL Glomerular Filtration Rate Calc 85 >90 mL/min BUN/Creatinine Ratio 14.7 10.0-20.0 Serum Glucose 88 74-106 mg/dL Calcium Level 9.1 8.7-10.4 mg/dL Total Bilirubin 0.4 0.2-1.0 mg/dL Aspartate Amino Transferase (AST) 13 13-40 U/L Alanine Aminotransferase (ALT) 15 7-40 U/L Alkaline Phosphatase 74 46-116 U/L Total Protein 6.6 5.7-8.2 g/dL Albumin 4.6 3.2-4.8 g/dL Assessment Acute chest pain to rule out CAD/ACS. Hypertension. Tobacco use. Plan/Recommendation I agree with your ongoing assessment and care of plan. Patient has been seen by Orly Merchant NP on my behalf, her and I discussed the plan with the patient. Given risk factors and intermediate scores, ACS can not be fully ruled out despite negative troponins and nonischemic ECG. Cardiolite stress test recommended to assess for inducible ischemia. Await echocardiogram results for LV function and structural evaluation. Continue telemetry monitoring while inpatient. Counseled patient on risk of premature discharge given intermediate ACS risk. Chest pain protocol--continue aspirin. Check lipid panel and TSH. Optimize blood pressure management. Strongly encouraged smoking cessation. Additional plan as per the hospital course. Plan discussed with: Patient NYHA Physical activity limitations: NA Date of Service: Mar 21, 2025 Billing Provider: EDGARDO MOREL MD Cardiology Common Codes: [id number] INP/OBS CARE (High) Cardiology Consultation Codes: [id number] CONSULT <45MIN EDGARDO MOREL MD Mar 21, 2025 16:41
--- NOTE | 2025-03-22 02:49 | DVHSR ---
APPROVED REPORT EXAM: Two-dimensional and M-mode echocardiogram with Doppler and color Doppler. Blood Pressure: 147/90 mmHg INDICATION Chest Pain RISK FACTORS Height: 5'7", Weight: 183 DIMENSIONS LVDd4.4 (3.8-5.7cm)LA (2D)3.7 (1.9-4.0cm)Aortic Root3.9 (2.0-3.7cm) LVDs3.1 (2.5-4.0cm)LA (MM) (1.9-4.0cm)Aortic Cusp Exc1.8 (1.5-2.0cm) EF (%) 60.0 (55-70%)Rt. Atrium4.1 (1.9-4.0cm)Asc. Aorta cm IVSd1.1 (0.7-1.1cm)RV (D)4.2 (1.8-2.4cm) PWd1.0 (0.7-1.1cm) Mitral Valve MitralMitral Stenosis E wave0.56m/sMV Mean GR.mmHg A wave0.89m/sMV Peak GR.mmHg E/A ratio0.62D MVAcm2 DECEL [id number] 1/2 Timems Aortic Valve Aortic ValveAortic Stenosis V11.25m/Aranza Mean GR.3mmHg V21.22m/Aranza Peak GR.6mmHg LVOT Diameter2.0 (1.8-2.4cm)Doppler AVA3.22cm2 Pulmonic Valve V20.72m/s Tricuspid Valve TR Velocity2.49m/s [id number] Other Information Technically limited study due to body habitus. Conclusion MILD LVH AND MILD LV DIASTOLIC DYSFUNCTION LV EF IS 65% NORMAL VALVES NORMAL RV FUNCTION,SIZE AND PRESSURE NO EFFUSION
[2025-03-22] MEDS ORDERED: METOPROLOL SUCCINATE XL 50 MG TAB PO SCH (10:00)
[2025-03-22] MEDS ORDERED: METOPROLOL TARTRATE 50 MG TAB PO SCH (10:00)
--- NOTE | 2025-03-23 10:36 | ECG ---
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
== END 2025-03-21 16:30 | disposition left against medical advice (07) | DRG 282 ==
LOC: ER 13:05 → OVERFLOW 16:47 → TELE-CENTR 18:24
PROVIDERS: ADMIT Internal Medicine; ATTEND Internal Medicine
DX: I21.9 Acute myocardial infarction, unspecified (principal); I10 Essential (primary) hypertension; F17.210 Nicotine dependence, cigarettes, uncomplicated; Z53.29 Procedure and treatment not carried out because of patient's decision for other reasons; Z79.899 Other long term (current) drug therapy
CPT/HCPCS: 36415; 71045; 80053; 84484; 85025; 93005; 93306; G0378